=== PATIENT | female | born 1980 | race Caucasian/White ===

== ENCOUNTER 2017-11-26 15:36 | Emergency (ER) | payer OTHER ==
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
[2017-11-26] MEDS ORDERED: ACETAMINOPHEN 325 MG TABLET PO STA (16:19)
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
[2017-11-26 18:05] VITALS: BP 116/84
== END 2017-11-26 18:03 | disposition home or self-care (01) ==
LOC: ED 15:36
DX: S20.212A Contusion of left front wall of thorax, initial encounter (principal); S10.93XA Contusion of unspecified part of neck, initial encounter; V43.52XA Car driver injured in collision with other type car in traffic accident, initial encounter
CPT/HCPCS: 71250; 99283; A9270

== ENCOUNTER 2020-09-30 10:26 | Emergency (ER) | payer OTHER ==
[2020-09-30 10:34] VITALS: BP 138/82
--- NOTE | 2020-09-30 10:59 | XRAY Report ---
PROCEDURE: Wrist 3 View LT INDICATIONS: trauma TECHNIQUE: 3 views of the wrist were acquired. COMPARISON: None FINDINGS: Bones: No fractures or dislocations. No suspicious bony lesions. Soft tissues: No suspicious soft tissue calcifications. IMPRESSION: No fracture. No osseous lesion. If there are persistent symptoms or continued clinical concern for pa thology, then repeat plain film radiographs (7-10 days) or advanced imaging (CT, MR, bone scan) shoul d be considered for further evaluation. Reviewed by: Rina Campo MD, PhD on 09/30/2020 10:58 AM PDT Approved by: Rina Campo MD, PhD on 09/30/2020 10:58 AM PDT Station ID: [id number]
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
== END 2020-09-30 12:11 | disposition home or self-care (01) ==
LOC: ED 10:26
DX: S63.502A Unspecified sprain of left wrist, initial encounter (principal); W18.30XA Fall on same level, unspecified, initial encounter; Y93.51 Activity, roller skating (inline) and skateboarding
CPT/HCPCS: 29125; 99282; 99283